=== PATIENT | male | born 1995 | race Caucasian/White ===

== ENCOUNTER 2020-04-09 17:12 | Inpatient (IN) | payer MEDICAID ==
[~2020-04-09] VITALS: Ht 167.6 cm; Wt 83.5 kg
--- NOTE | 2020-04-09 17:16 | NUR ---
[id number] [facility] C/O ABDOMINAL PAIN, NAUSEA AND VOMITING S/P EATING LUNCH, TO ER BED 11, HOOKED TO MONITOR, CHANGED TO HOSP GOWN, WARM BLANKET PROVIDED, PATIENT AAO x 4, BREATHING EVEN AND UNLABORED. SHARITA PACHECO AT BEDSIDE
[2020-04-09] MEDS ORDERED: ONDANSETRON HCL/PF 4 MG/2 ML VIAL ONE ×2 (17:27→19:52)
[2020-04-09] MEDS ORDERED: ONDANSETRON HCL/PF 4 MG/2 ML VIAL IVP ONE (17:30)
[2020-04-09] MEDS ORDERED: IV NS 0.9% 1,000 ML BAG IV ONE (17:30)
[2020-04-09 17:40] LABS: BASOPHILS # (AUTO) 0.1 /CMM (0.0-0.2); BASOPHILS % (AUTO) 0.6 % (0.0-2.0); EOSINOPHILS % (AUTO) 0.2 % (0.0-6.0); HEMATOCRIT 51 % (39-51); LYMPHOCYTES # (AUTO) 1.8 /CMM (0.8-4.8); LYMPHOCYTES % (AUTO) 11.4 % (20.0-44.0); MEAN CORPUSCULAR HGB CONC 34 g/dl (31.0-36.0); MEAN CORPUSCULAR VOLUME 93 fL (80-96); MONOCYTES # (AUTO) 1.4 /CMM (0.1-1.30); MONOCYTES % (AUTO) 8.8 % (2.0-12.0); NEUTROPHILS # (AUTO) 12.7 /CMM (1.8-8.9); PLATELET COUNT (AUTO) 310 /CMM (150-450); RED BLOOD CELL COUNT(AUTO) 5.44 MIL/uL (4.5-6.0); WHITE BLOOD COUNT (AUTO) 16.1 K/uL (4.3-11.0)
[2020-04-09 17:50] LABS: CALCIUM, SERUM 10.8 mg/dL (8.5-10.1); CREATININE 2.9 mg/dL (0.6-1.3); POTASSIUM 3.3 mmol/L (3.5-5.1)
[2020-04-09 17:55] LABS: ALBUMIN 5.3 g/dL (3.4-5.0); BILIRUBIN,DIRECT 0.2 mg/dL (0.0-0.2); BILIRUBIN,TOTAL 1.1 mg/dL (0.2-1.0); TOTAL PROTEIN, SERUM 9.3 g/dL (6.4-8.2)
--- NOTE | 2020-04-09 18:39 | NUR ---
MOVE SHEET SUBMITTED TO ADMITTING.
--- NOTE | 2020-04-09 19:07 | NUR ---
TOOK OVER PT CARE. PT AAOX4. PLACED ON MONITOR AND PULSE OX. DENIES PAIN.
--- NOTE | 2020-04-09 19:41 | NUR ---
MELODIE COLLECTED AND SENT TO LAB
[2020-04-09 19:44] LABS: APPEARANCE,URINE Clear (CLEAR); BILIRUBIN,URINE SMALL (NEGATIVE); BLOOD, URINE Trace-intact Ery/uL (NEGATIVE); COLOR,URINE Yellow (YELLOW); KETONES,URINE 40 (NEGATIVE); LEUKOCYTE ESTERASE ,URINE Negative (NEGATIVE); NITRITE, URINE Negative (NEGATIVE); PROTEIN,URINE Trace mg/dl (NEGATIVE); UGLUCOSE Negative (NEGATIVE); UROBILINOGEN,URINE 0.2 EU/dL (0.2)
--- NOTE | 2020-04-09 19:48 | NUR ---
PT STATED HE IS NAUSEOUS. PA AWARE.
--- NOTE | 2020-04-09 19:50 | NUR ---
PT STILL C/O NAUSEA. SHARITA CHILDERS MADE AWARE
[2020-04-09] MEDS ORDERED: ONDANSETRON HCL/PF 4 MG/2 ML VIAL IV ONE (20:00)
--- NOTE | 2020-04-09 20:06 | NUR ---
CALLED NURSING SUP FOR BED
[2020-04-09 20:08] LABS: BACTERIA,URINE Rare /HPF (None Seen); SQUAMOUS EPITHELIAL CELL,UR Few /HPF (None Seen); WBC,URINE NONE SEEN /HPF (0-3)
--- NOTE | 2020-04-09 20:12 | NUR ---
BED ASSIGNMENT 208-1
--- NOTE | 2020-04-09 20:13 | NUR ---
JUMANA Daniels STAPLER MACHINE SPEAKING TO STAPLER MACHINE REGARDING PT.
--- NOTE | 2020-04-09 20:18 | NUR ---
REPORT GIVEN TO MERLENE MANN FOR ROBBI
[2020-04-09 20:30] VITALS: BP 139/98
--- NOTE | 2020-04-09 20:30 | NUR ---
ms admission note received patient via gurney. ambulated to bed with steady gait. tolerating room air, respirations are even and unlabored. no s/s sob noted. states pain in abdomen no pain medication wanted at this time. in no apparent distress. iv access in RAC#20 patent and saline locked. rn residential obtained vital signs and completed belongings list. initial physical assessment completed at this time. skin assessment completed and photos placed n chart. bed is low and locked, hob elevated in semi keene. side rials up x2. call lght within reach. will continue to monitor
[2020-04-09 20:40] VITALS: BP 139/98
[2020-04-09] MEDS ORDERED: ZOLPIDEM TARTRATE 5 MG TABLET PO PRN (21:00)
[2020-04-09] MEDS ORDERED: MAGNESIUM HYDROXIDE 30 ML UDC PO PRN (21:00)
[2020-04-09] MEDS ORDERED: MAG HYDROX/AL HYDROX/SIMETH 30 ML UDC PO PRN (21:00)
[2020-04-09] MEDS ORDERED: ACETAMINOPHEN 325 MG TABLET PO PRN (21:00)
[2020-04-09] MEDS ORDERED: HYDROCODONE/APAP 5/325MG 1 EACH TABLET PO PRN (21:00)
[2020-04-09] MEDS ORDERED: ONDANSETRON HCL/PF 4 MG/2 ML VIAL IVP PRN (21:00)
[2020-04-09] MEDS ORDERED: Z GUARD REMEDY 2 OZ OINT TP PRN (21:00)
[2020-04-09] MEDS: Potassium Chloride 20 MEQ in IV NS 0.9% 1,000 ML IV PRN (21:42)
[2020-04-09] MEDS ORDERED: PIPERACILLIN /TAZOBACTAM 3.375 G VIAL IV ONE (22:01)
[2020-04-09] MEDS: PIPERACILLIN /TAZOBACTAM 3.375 G in IV D5W 50 ML IV SCH (22:14)
[2020-04-10] MEDS ORDERED: PIPERACILLIN /TAZOBACTAM 3.375 G in IV D5W 50 ML IV SCH ×2
[2020-04-10] MEDS ORDERED: PIPERACILLIN /TAZOBACTAM 3.375 G VIAL IV ONE (04:58)
[2020-04-10] MEDS: PIPERACILLIN /TAZOBACTAM 3.375 G in IV D5W 50 ML IV SCH (05:01)
--- NOTE | 2020-04-10 07:36 | NUR ---
ms rn closing note patient in bed. tolerating room air, respirations are even and unlabored. no sob noted. no distress. iv access maintained in RAC#20 patent and saline locked. bed remains low and locked, hob elevated in semi keene. side rials up x2. call light within reach. will endorse to next shift
--- NOTE | 2020-04-10 07:46 | NUR ---
MS RN OPENING NOTE RECEIVED PATIENT IN BED RESTING COMFORTABLY. PATIENT IN NO ACUTE DISTRESS. NO SOB NOTED. PATIENT BREATHING IS EVEN AND UNLABORED. PATIENT EDUCATED TO REMAIN NPO STATUS AT THIS TIME, PATIENT VERBALIZED UNDERSTANDING. SAFETY PRECAUTIONS IN PLACE. PATIENT BED ALARM IS ON. PATIENT BED IS LOCKED AND IN LOWEST POSITION. CALL LIGHT WITHIN REACH. WILL CONTINUE TO MONITOR.
[2020-04-10] MEDS: PANTOPRAZOLE 40 MG VIAL IV SCH (08:19)
[2020-04-10 10:05] LABS: BASOPHILS # (AUTO) 0.1 /CMM (0.0-0.2); BASOPHILS % (AUTO) 0.7 % (0.0-2.0); EOSINOPHILS % (AUTO) 0.2 % (0.0-6.0); HEMATOCRIT 43 % (39-51); HEMOGLOBIN 14.5 g/dL (13.5-17.5); LYMPHOCYTES # (AUTO) 1.9 /CMM (0.8-4.8); LYMPHOCYTES % (AUTO) 19.4 % (20.0-44.0); MEAN CORPUSCULAR HGB CONC 34 g/dl (31.0-36.0); MEAN CORPUSCULAR VOLUME 93 fL (80-96); MONOCYTES # (AUTO) 1.2 /CMM (0.1-1.30); MONOCYTES % (AUTO) 12.6 % (2.0-12.0); NEUTROPHILS # (AUTO) 6.5 /CMM (1.8-8.9); NEUTROPHILS % (AUTO) 67.1 % (43.0-81.0); PLATELET COUNT (AUTO) 232 /CMM (150-450); RED BLOOD CELL COUNT(AUTO) 4.65 MIL/uL (4.5-6.0); WHITE BLOOD COUNT (AUTO) 9.7 K/uL (4.3-11.0)
[2020-04-10 10:13] LABS: ALBUMIN 3.9 g/dL (3.4-5.0); BILIRUBIN,DIRECT 0.3 mg/dL (0.0-0.2); BILIRUBIN,TOTAL 1.1 mg/dL (0.2-1.0); CALCIUM, SERUM 9.1 mg/dL (8.5-10.1); CREATININE 1.7 mg/dL (0.6-1.3); MAGNESIUM 2.5 mg/dL (1.8-2.4); POTASSIUM 3.6 mmol/L (3.5-5.1); TOTAL PROTEIN, SERUM 7.1 g/dL (6.4-8.2)
--- NOTE | 2020-04-10 11:47 | NUR ---
Social service consult requested by MD for homelessness. Per MD notes, pt is a 25-year-old male brought in by paramedics to the Emergency Department second to nausea and vomiting with abdominal pain. Per patient, his symptoms started this afternoon after eating "[place] Food" that was given to him. He reported having 4x episode of non-bloody and non- bilious emesis with moderate non-radiating abdominal pain. Initial workup revealed elevated WBC with BUN/Creatinine at 25/2.9. His abdominal exam was benign. CT suggestive of diffuse colitis. The patient reported 2 episodes of nonbloody loose stools. PICKING MACHINE OPERATOR HELPER conducted chart review and met with the pt bedside. PICKING MACHINE OPERATOR HELPER introduced self, explained the role of the SW and purpose of the visit. Pt is alert and oriented x 4 with appropriate affect. Pt is slow to respond when asked questions. Pt appears to have insight and apologizes for answering slowly. Pt reports, he was residing in [place] with his family, however he was incarcerated there and transferred to [place] since he was on probation in [place] for burglary that occurred 6 years ago. Pt reports, he is no longer on probation as of yesterday. Pt reports, he resides in a tent located at [facility] in [place]. Pt receives food stamps and GR. Prior to living in a tent for the past 3 weeks, pt was residing at [facility] in [place]. Pt reports, he got tired of staying there since they would not let him leave the facility to get food etc. Pt states, he will return to his tent upon discharge. Pt reports to have a psychiatric diagnosis of Bipolar and Anxiety. Pt states, he was taking medication for it but cannot seem to remember the name of his medication. Pt denies suicidal and homicidal ideations at this time. Pt reports to have a history of alcohol use disorder. Pt denies any current substance use/abuse at this time. PICKING MACHINE OPERATOR HELPER provided pt with active listening, emotional support, supportive counseling and positive coping skills. PICKING MACHINE OPERATOR HELPER to provide pt with Homeless Resources Related to COVID-19 packet at time of discharge. Homeless patient waiver form to be signed by pt and TAP to be provided at time of discharge. PICKING MACHINE OPERATOR HELPER updated LANRE Leon and pt's bedside MACKENZIE Watkins. Aircraft Systems Technician to remain available for support as needed.
--- NOTE | 2020-04-10 11:53 | NUR ---
MS RN NOTE SPOKE WITH BOOGIE FISHER PER BOOGIE ORDER OKAY FOR PATIENT TO HAVE MINIMAL ICE CHIPS WITH NPO STATUS.
[2020-04-10] MEDS: PIPERACILLIN /TAZOBACTAM 3.375 G in IV D5W 100 ML IV SCH ×2 (13:39→20:47)
[2020-04-10 15:42] LABS: APPEARANCE,URINE CLEAR (CLEAR); BILIRUBIN,URINE NEGATIVE (NEGATIVE); BLOOD, URINE NEGATIVE Ery/uL (NEGATIVE); COLOR,URINE YELLOW (YELLOW); KETONES,URINE NEGATIVE (NEGATIVE); LEUKOCYTE ESTERASE ,URINE NEGATIVE (NEGATIVE); NITRITE, URINE NEGATIVE (NEGATIVE); PH,URINE 5.5 (5.0-8.0); PROTEIN,URINE NEGATIVE (NEGATIVE); UGLUCOSE NEGATIVE (NEGATIVE); UROBILINOGEN,URINE 0.2 EU/dL (0.2)
[2020-04-10 16:31] LABS: EOSINOPHIL,URINE None Seen
[2020-04-10] MEDS: Potassium Chloride 20 MEQ in IV NS 0.9% 1,000 ML IV PRN (16:36)
[2020-04-10 17:22] LABS: CREATININE, URINE 93.9 MG/DL (30.0-125.0); URINE TOTAL PROTEIN 9.9 mg/dL (0-11.9)
--- NOTE | 2020-04-10 17:48 | NUR ---
MS RN NOTE SPOKE WITH BOOGIE FISHER, ORDER TO PLACE ON REGULAR DIET PER MD.
--- NOTE | 2020-04-10 19:33 | NUR ---
MS RN CLOSING NOTE PATIENT IN BED RESTING COMFORTABLY. PATIENT IN NO ACUTE DISTRESS. NO SOB NOTED. PATIENT BREATHING IS EVEN AND UNLABORED. IV PATENT AND INTACT. PATIENT KEPT CLEAN, DRY, AND COMFORTABLE THROUGHOUT SHIFT. NEEDS AND CONCERNS ADDRESSED. SAFETY PRECAUTIONS IN PLACE. PATIENT TOLERATED DINNER WELL. PATIENT BED ALARM IS ON. PATIENT BED IS LOCKED AND IN LOWEST POSITION. CALL LIGHT WITHIN REACH. WILL ENDORSE CARE TO PM SHIFT FOR ROBBI.
--- NOTE | 2020-04-10 19:35 | NUR ---
MS/RN OPENING NOTES: PATIENT IN BED RESTING COMFORTABLY. NO SOB NOTED. IN NO ACUTE DISTRESS. BREATHING IS EVEN AND UNLABORED. IV ON THE RIGHT AC #20G PATENT AND INTACT. NEEDS AND CONCERNS ADDRESSED AT THIS TIME. SAFETY PRECAUTIONS IN PLACE. PATIENT BED ALARM IS ON. PATIENT BED IS LOCKED AND IN LOWEST POSITION. CALL LIGHT WITHIN REACH. WILL CONTINUE TO MONITOR ACCORDINGLY.
[2020-04-10 20:00] VITALS: BP 128/62
[2020-04-11] MEDS: PIPERACILLIN /TAZOBACTAM 3.375 G in IV D5W 100 ML IV SCH ×2 (04:35→12:57)
[2020-04-11 07:16] LABS: ALBUMIN 3.6 g/dL (3.4-5.0); CREATININE 1.3 mg/dL (0.6-1.3); MAGNESIUM 2.2 mg/dL (1.8-2.4); PHOSPHORUS 3.6 mg/dL (2.5-4.9); POTASSIUM 3.7 mmol/L (3.5-5.1)
--- NOTE | 2020-04-11 07:19 | NUR ---
MS/RN CLOSING NOTES: PATIENT REMAINS IN BED RESTING COMFORTABLY. NO SOB NOTED. IN NO ACUTE DISTRESS. BREATHING IS EVEN AND UNLABORED. IV ON THE RIGHT AC #20G PATENT AND INTACT WITH POTASSIUM CHL. 20MEQ @90ML/HR. NEEDS AND CONCERNS ADDRESSED AT THIS TIME. ALL NURSING NEEDS MET AND RENDERED. SAFETY PRECAUTIONS IN PLACE. PATIENT BED ALARM IS ON. PATIENT BED IS LOCKED AND IN LOWEST POSITION. CALL LIGHT WITHIN REACH. WILL ENDORSE TO DAY SHIFT FOR ROBBI.
--- NOTE | 2020-04-11 07:30 | NUR ---
RN OPENING NOTES RECEIVED PATIENT IN BED RESTING. NOT IN ANY FORM OF DISTRESS. NO SOB. DENIED PAIN OR DISCOMFORT AT THIS TIME. IV ACCES INTACT AND PATENT. SAFETY MEASURES IN PLACE. BED IN LOW/LOCKED POSITION. SIDERAILS UPX2,CALL LIGHT IN REACH. WILL MONITOR ACCORDINGLY.
[2020-04-11 08:20] LABS: BASOPHILS # (AUTO) 0.1 /CMM (0.0-0.2); BASOPHILS % (AUTO) 0.8 % (0.0-2.0); EOSINOPHILS % (AUTO) 1.6 % (0.0-6.0); HEMATOCRIT 43 % (39-51); HEMOGLOBIN 14.5 g/dL (13.5-17.5); LYMPHOCYTES # (AUTO) 2.4 /CMM (0.8-4.8); LYMPHOCYTES % (AUTO) 33.1 % (20.0-44.0); MEAN CORPUSCULAR HGB CONC 34 g/dl (31.0-36.0); MEAN CORPUSCULAR VOLUME 94 fL (80-96); MONOCYTES # (AUTO) 0.8 /CMM (0.1-1.30); MONOCYTES % (AUTO) 10.8 % (2.0-12.0); NEUTROPHILS # (AUTO) 3.8 /CMM (1.8-8.9); NEUTROPHILS % (AUTO) 53.7 % (43.0-81.0); PLATELET COUNT (AUTO) 241 /CMM (150-450); RED BLOOD CELL COUNT(AUTO) 4.59 MIL/uL (4.5-6.0); WHITE BLOOD COUNT (AUTO) 7.2 K/uL (4.3-11.0)
[2020-04-11] MEDS: PANTOPRAZOLE 40 MG VIAL IV SCH (08:27)
[2020-04-11 10:52] VITALS: BP 122/72
--- NOTE | 2020-04-11 14:27 | NUR ---
TELEPHONE SALES AGENT received a call from pt's bedside RN stating pt will be discharging today. TELEPHONE SALES AGENT and RN met with the pt bedside. Pt was provided with homeless resources related to COVID-19 that included mental health clinics, [facility], hygiene, food, health clinics etc. Homeless patient Waiver form was signed by the pt and placed in pt's chart by RN. No other social service needs are requested at this time. Flight Follower is available for support as needed. Pt will be provided with a TAP card.
[2020-04-11] MEDS ORDERED: METR500T PO (14:44)
[2020-04-11] MEDS ORDERED: CIPR500T5 PO (14:44)
[2020-04-11 16:00] VITALS: BP 131/83
--- NOTE | 2020-04-11 17:00 | NUR ---
DISCHARGED PATIENT IN STABLE CONDITION.DC INSTRUCTIONS GIVEN, TO CONT ANTIBIOTICS, AND FOLLOW UP PCP. VERBALIZED UNDERSTANDING. ALL BELONGINGS RETURNED. FORMS SIGNED. IV ACCESS REMOVED, TIP INTACT, NO COMPLICATIONS. NAME BAND REMOVED. TAP CARD GIVEN. Addendum: 04/11/20 at 1743 by BERNIE PINEDA SKIN PHOTO TAKEN
[2020-04-12 11:17] LABS: PTH, INTACT 39 pg/mL (15-65)
== END 2020-04-11 17:00 | disposition home or self-care (01) | DRG 248 ==
LOC: ER 17:15 → MEDSG2 20:19
PROVIDERS: ADMIT Nurse Practitioner Acute Care; ATTEND Nurse Practitioner Acute Care
DX: A04.9 Bacterial intestinal infection, unspecified (principal); E86.9 Volume depletion, unspecified; N17.0 Acute kidney failure with tubular necrosis; E87.6 Hypokalemia; R74.0 Nonspecific elevation of levels of transaminase and lactic acid dehydrogenase [LDH]; Z59.0 Homelessness; E86.0 Dehydration; E86.1 Hypovolemia; D72.829 Elevated white blood cell count, unspecified; K65.9 Peritonitis, unspecified; F31.9 Bipolar disorder, unspecified
CPT/HCPCS: 36415; 80048-TC; 80053-TC; 80076-TC; 81000-TC; 82550-TC; 82570-TC; 83690-TC; 83735-TC; 83970; 84100-TC; 84155-TC; 84300-TC; 85025-TC; 86706; 86803; 87081-TC; 87340; C9113; G0378; J2405; J2543; J3480; J7030; J7050; J7060

== ENCOUNTER 2020-07-03 21:18 | Emergency (ER) | payer MEDICAID, OTHER ==
[~2020-07-03] VITALS: Ht 167.6 cm; Wt 72.6 kg
[~2020-07-03 21:18] MED LIST: CIPR500T5 PO; METR500T PO
--- NOTE | 2020-07-03 21:44 | NUR ---
PATIENT CAME TO ER BED 9 C/O NON-RADIATING ABDOMINAL CRAMPING PAIN SINCE A WEEK AGO. PATIENT STATES THAT HE HAS BEEN VOMITING FOR ABOUT A WEEK AND UNABLE TO HAVE A BOWEL MOVEMENT FOR 5x DAYS. PATIENT STATES HE IS NAUSEOUS AND UNABLE TO KEEP DOWN HIS FLUIDS. AAOX4. NO SOB. BREATHING EVENLY AND UNLABORED ON ROOM AIR. CONNECTED TO THE MONITOR.
--- NOTE | 2020-07-03 21:48 | NUR ---
BLOOD DRAWN AND SENT TO THE LAB.
[2020-07-03] MEDS ORDERED: MORPHINE SULFATE INJ 2 MG/ML DISP.SYRIN IV ONE (22:00)
[2020-07-03] MEDS ORDERED: ONDANSETRON HCL/PF 4 MG/2 ML VIAL IVP ONE (22:00)
[2020-07-03] MEDS ORDERED: IV NS 0.9% 1,000 ML BAG IV ONE (22:00)
[2020-07-03 22:10] LABS: BASOPHILS # (AUTO) 0.1 /CMM (0.0-0.2); BASOPHILS % (AUTO) 0.9 % (0.0-2.0); EOSINOPHILS % (AUTO) 0.5 % (0.0-6.0); HEMATOCRIT 44 % (39-51); HEMOGLOBIN 15.1 g/dL (13.5-17.5); LYMPHOCYTES # (AUTO) 2.5 /CMM (0.8-4.8); LYMPHOCYTES % (AUTO) 31.2 % (20.0-44.0); MEAN CORPUSCULAR HGB CONC 34 g/dl (31.0-36.0); MEAN CORPUSCULAR VOLUME 93 fL (80-96); MONOCYTES # (AUTO) 0.9 /CMM (0.1-1.30); MONOCYTES % (AUTO) 11.8 % (2.0-12.0); NEUTROPHILS # (AUTO) 4.4 /CMM (1.8-8.9); NEUTROPHILS % (AUTO) 55.6 % (43.0-81.0); PLATELET COUNT (AUTO) 279 /CMM (150-450); RED BLOOD CELL COUNT(AUTO) 4.77 MIL/uL (4.5-6.0)
[2020-07-03] MEDS ORDERED: MORPHINE SULFATE INJ 4 MG/ML DISP.SYRIN ONE (22:15)
[2020-07-03] MEDS ORDERED: ONDANSETRON HCL/PF 4 MG/2 ML VIAL ONE (22:15)
[2020-07-03 22:21] LABS: CREATININE 1.1 mg/dL (0.6-1.3); POTASSIUM 3.7 mmol/L (3.5-5.1)
[2020-07-03 22:28] LABS: BILIRUBIN,DIRECT 0.1 mg/dL (0.0-0.2); BILIRUBIN,TOTAL 0.4 mg/dL (0.2-1.0); TOTAL PROTEIN, SERUM 7.5 g/dL (6.4-8.2)
[2020-07-03 22:39] LABS: APPEARANCE,URINE Clear (CLEAR); BILIRUBIN,URINE Negative (NEGATIVE); BLOOD, URINE Negative Ery/uL (NEGATIVE); COLOR,URINE Yellow (YELLOW); KETONES,URINE Trace (NEGATIVE); LEUKOCYTE ESTERASE ,URINE Negative (NEGATIVE); NITRITE, URINE Negative (NEGATIVE); PH,URINE 7.5 (5.0-8.0); PROTEIN,URINE Negative (NEGATIVE); UGLUCOSE Negative (NEGATIVE)
[2020-07-03 22:51] LABS: BACTERIA,URINE Rare /HPF (None Seen); RBC,URINE NONE SEEN /HPF (0-2); SQUAMOUS EPITHELIAL CELL,UR Few /HPF (None Seen); WBC,URINE NONE SEEN /HPF (0-3)
--- NOTE | 2020-07-03 23:25 | NUR ---
IV removed. Catheter intact and site benign. Pressure and 4x4 applied to site. No bleeding noted.
--- NOTE | 2020-07-03 23:26 | NUR ---
Patient given written and verbal discharge instructions. Patient verbalizes understanding of instructions. Patient is ambulatory with steady gait. Refuses offer of long term placement. Patient given list of available shelters in surrounding area.
--- NOTE | 2020-07-03 23:26 | NUR ---
Patient discharged to home in stable condition. Written and verbal after care instructions given. Patient verbalizes understanding of instruction.
--- NOTE | 2020-07-03 23:30 | NUR ---
Thais roach in ED - 07/03/20 at 2335 by SULAIMAN PATIENT TAKEN TO CT
[2020-07-04 00:25] VITALS: BP 122/74
== END 2020-07-03 23:21 | disposition home or self-care (01) ==
LOC: ER 21:21
DX: R11.2 Nausea with vomiting, unspecified (principal); Z59.0 Homelessness; Z79.899 Other long term (current) drug therapy
CPT/HCPCS: 36415; 80048; 80076; 81001; 83690; 85025; 96361; 96374; 96375; 99284; J2270; J2405; J7030; 81000-TC